=== PATIENT | female | born 1995 | race Caucasian/White ===

== ENCOUNTER 2022-04-23 09:02 | Outpatient (CLI) | payer OTHER, SELFPAY | END 2022-04-23 09:03 | disposition home or self-care (01) | LOC: LKVREF 04-24 14:21 | PROVIDERS: PCP Physician Assistant Medical; Visit Provider Physician Assistant Medical | DX: Z01.419 Encounter for gynecological examination (general) (routine) without abnormal findings (principal); F41.9 Anxiety disorder, unspecified; Z13.6 Encounter for screening for cardiovascular disorders; Z13.29 Encounter for screening for other suspected endocrine disorder | CPT/HCPCS: 80061; 82947; 84443 ==

== ENCOUNTER 2022-09-09 11:52 | Emergency (ER) | payer OTHER, SELFPAY ==
[2022-09-09 11:59] VITALS: BP 116/92; PULSE 81; RESP 16; TEMP 36.7; O2SAT 97; BMI 28.3
--- NOTE | 2022-09-09 12:17 | CRLHL7_ITS ---
For Patients: As a result of the Century Cures Act, medical imaging exams and procedure reports are released immediately into your electronic medical record. You may view this report before your referring provider. If you have questions, please contact your health care provider. INDICATION: Bleeding in 1st trimester. TECHNIQUE: Ultrasound OB pelvis transvaginal. Real-time renee-scale imaging of the pelvis was performed. COMPARISON: None. FINDINGS: There is an intrauterine . Gestational sac has a mean sac diameter of 0.7 cm corresponds to a gestational age of 5 weeks 3 days with a sonographic due date of May 09, 2023. There is a normal appearing yolk sac. There are no gross abnormalities noted within the embryo at this early state of development. The placenta has not yet developed. There is no sign of perigestational hemorrhage. The ovaries are of normal size. There are no suspicious fluid collections noted in the cul-de-sac. IMPRESSION: Early intrauterine with an estimated ultrasound age of 5 weeks 3 days by gestational sac size. It is too early to determine viability. No sign of hemorrhage or other abnormality. Dictated by Gordo Lewis MD @ 09/09/2022 2:34:56 PM (Electronically Signed)
--- NOTE | 2022-09-09 12:23 | ED.GENADULT ---
HPI - General Adult General Time Seen by Provider: 12:24 Date Seen: 09/09/22 Chief complaint: Vaginal Bleeding Stated complaint: Possible miscarriage Time Seen by Provider: 09/09/22 12:02 Source: patient Mode of arrival: ambulatory Limitations: no limitations History of Present Illness HPI narrative: Patient is a 27 year white female who has a G 3 para 2, who presents at about 7 weeks estimated gestational age by last menstrual period with vaginal bleeding for 2 days it was very light could date was little heavier. She [facility] nursing [facility] and asked her to come to the ER. She has no lightheadedness dizziness, she does not have any chest pain breathing problem, no fevers chills or COVID symptoms. Presents to the ED, she has passed some clots Related Data Home Medications Medication Instructions Recorded Confirmed ibuprofen 600 mg tablet mg PO PRN 04/22/22 04/22/22 loratadine 10 mg tablet 10 mg PO DAILY 04/22/22 04/22/22 Previous Rx's Medication Instructions Recorded fluoxetine 20 mg capsule 20 mg PO QDAY #90 caps 07/29/22 Allergies Allergy/AdvReac Type Severity Reaction Status Date / Time No Known Allergies Allergy Unknown Unverified 04/22/22 10:06 Review of Systems Status of ROS: Reports: 6 or more systems reviewed and unremarkable except as noted in History and below [facility] Medical History Normal spontaneous vaginal delivery Family History Son Kidney disease Mother Anxiety and depression Other Thyroid disease Social History Narrative: . 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 Nonsmoker 5 alcoholic beverages per month on average Smoking Status: Never smoker How often do you have a drink containing alcohol: never AUDIT-C Alcohol total score: 0 Non-prescribed substance use: denies use Little interest or pleasure in doing things: several days Feeling down, depressed, or hopeless: several days Exam Narrative: Exam Narrative: Objective: The patient is alert or x3 vital signs unremarkable, abdomen is benign, negative CVA tenderness, extremities show good perfusion Const: Vital Signs, click to edit/add: Vital Signs - 24 hr 09/09/22 11:59 Temperature 98.1 F Pulse Rate [Pulse Oximeter] 81 Respiratory Rate 16 Blood Pressure [Le ft Upper Arm] 116/92 H Pulse Oximetry 97 Oxygen Delivery Me thod Room Air Course Vital Signs Vital signs: Initial Vital Signs Temperature 98.1 F 09/09/22 11:59 Temperature Source Temporal Artery Scan 09/09/22 11:59 Pulse Rate 81 09/09/22 11:59 Respiratory Rate 16 09/09/22 11:59 Blood Pressure 116/92 H 09/09/22 11:59 Blood Pressure Mean 100 09/09/22 11:59 Blood Pressure Position Supine 09/09/22 11:59 Pulse Oximetry 97 09/09/22 11:59 Oxygen Delivery Method 09/09/22 11:59 Vital Signs Temperature 98.1 F 09/09/22 11:59 Pulse Rate 81 09/09/22 11:59 Respiratory Rate 16 09/09/22 11:59 Blood Pressure 116/92 H 09/09/22 11:59 Pulse Oximetry 97 09/09/22 11:59 Oxygen Delivery Method 09/09/22 11:59 Temperature 98.1 F 09/09/22 11:59 Pulse Rate 81 09/09/22 11:59 Respiratory Rate 16 09/09/22 11:59 Blood Pressure 116/92 H 09/09/22 11:59 Pulse Oximetry 97 09/09/22 11:59 Oxygen Delivery Method 09/09/22 11:59 Medical Decision Making MDM Narrative Medical decision making narrative: At this point I think could be appropriate to do an ultrasound transvaginal to the confirm , or see if there was intrauterine contents. Would also do a qualitative HCG, blood type, CBC heme 4, panel 7. Disposition pending findings above. At this point the patient is hemodynamically stable. Lab Data Labs: Lab Results 09/09/22 09/09/22 09/09/22 Range/Units 12:40 12:40 12:40 WBC 9.57 (4.50-11.00) K/uL RBC 4.24 (4.00-5.20) m/uL Hgb 13.2 (12.0-16.0) gm/dL Hct 40.1 (33.0-51.0) % MCV 95 (80-100) fL MCH 31 (26-34) pg MCHC 33 (32-36) gm/dL RDW Coeff of Jyoti 13.3 (11.5-15.5) % Plt Count 320 (140-440) K/uL Neut % (Auto) 59.0 (42.0-72.0) % Lymph % (Auto) 29.5 (20-44) % [place] % (Auto) 6.2 (0.0-11.0) % Eos % (Auto) 4.6 (0.0-7.0) % Baso % (Auto) 0.5 (0.0-3.0) % Neut # (Auto) 5.65 (1.7-7.0) K/uL Lymph # (Auto) 2.82 (0.90-2.90) K/uL [place] # (Auto) 0.60 (0.00-0.90) K/UL Eos # (Auto) 0.44 (0.00-0.50) K/uL Baso # (Auto) 0.05 (0.00-0.30) K/uL Sodium 140 (135-149) mmol/L Potassium 4.5 (3.6-5.1) mmol/L Chloride 105 (96-114) mmol/L Carbon Dioxide 28 (20-32) mmol/L BUN 16 (5-24) mg/dL Creatinine 0.7 (0.5-1.5) mg/dL Estimated Creat Clear 87.48 Estimated GFR 122 ml/min Glucose 91 (60-115) mg/dL Calcium 10.0 (8.4-10.6) mg/dL HCG, Quant mIU/mL Blood Type O Positive 09/09/22 Range/Units 12:40 WBC (4.50-11.00) K/uL RBC (4.00-5.20) m/uL Hgb (12.0-16.0) gm/dL Hct (33.0-51.0) % MCV (80-100) fL MCH (26-34) pg MCHC (32-36) gm/dL RDW Coeff of Jyoti (11.5-15.5) % Plt Count (140-440) K/uL Neut % (Auto) (42.0-72.0) % Lymph % (Auto) (20-44) % [place] % (Auto) (0.0-11.0) % Eos % (Auto) (0.0-7.0) % Baso % (Auto) (0.0-3.0) % Neut # (Auto) (1.7-7.0) K/uL Lymph # (Auto) (0.90-2.90) K/uL [place] # (Auto) (0.00-0.90) K/UL Eos # (Auto) (0.00-0.50) K/uL Baso # (Auto) (0.00-0.30) K/uL Sodium (135-149) mmol/L Potassium (3.6-5.1) mmol/L Chloride (96-114) mmol/L Carbon Dioxide (20-32) mmol/L BUN (5-24) mg/dL Creatinine (0.5-1.5) mg/dL Estimated Creat Clear Estimated GFR ml/min Glucose (60-115) mg/dL Calcium (8.4-10.6) mg/dL HCG, Quant 2051.10 mIU/mL Blood Type Discharge Plan Discharge Clinical Impression: Threatened Patient Disposition: Home, Self-Care Condition: Stable Additional Instructions: Patient has hCG of 2000, has intrauterine gestational sac. Basically needs a repeat hCG level in 48 hours. Her blood type is positive Rh. She will return if problems concerns, lightheadedness dizziness, otherwise follow up with OB. Discharge Diet: Regular Prescriptions: No Action loratadine 10 mg tablet 10 mg PO DAILY ibuprofen 600 mg tablet PO PRN fluoxetine 20 mg capsule 20 mg PO QDAY Qty: 90 0RF Rx Instructions: once daily for mood Follow Up/Referrals: Angela Owens PA-C [Primary Care Provider] - Stand Alone Forms: [employer] Info Instructions
[2022-09-09 12:51] LABS: Basophils Absolute Auto 0.05 K/uL (0.00-0.30); Basophils Percent Auto 0.5 % (0.0-3.0); Eosinophils Absolute Auto 0.44 K/uL (0.00-0.50); Eosinophils Percent Auto 4.6 % (0.0-7.0); Hematocrit 40.1 % (33.0-51.0); Hemoglobin* 13.2 gm/dL (12.0-16.0); Immature Granulocytes Abs Auto 0.02 K/uL (0.00-0.30); Immature Granulocytes Pct Auto 0.2 %; Lymphocytes Absolute Auto 2.82 K/uL (0.90-2.90); Lymphocytes Percent Auto 29.5 % (20-44); Mean Corpuscular HGB Conc 33 gm/dL (32-36); Mean Corpuscular Hemoglobin 31 pg (26-34); Mean Corpuscular Volume 95 fL (80-100); Monocytes Percent Auto 6.2 % (0.0-11.0); Neutrophils Absolute Auto 5.65 K/uL (1.7-7.0); Platelet Count* 320 K/uL (140-440); RDW Coefficient of Variation % 13.3 % (11.5-15.5); Red Blood Count 4.24 m/uL (4.00-5.20); White Blood Count* 9.57 K/uL (4.50-11.00)
[2022-09-09 12:53] LABS: Slide Review Reflex No
[2022-09-09 13:15] LABS: Chloride* 105 mmol/L (96-114); Potassium* 4.5 mmol/L (3.6-5.1); Sodium* 140 mmol/L (135-149)
[2022-09-09 13:18] LABS: Blood Urea Nitrogen* 16 mg/dL (5-24); Carbon Dioxide* 28 mmol/L (20-32); Creatinine* 0.7 mg/dL (0.5-1.5); Est. Creatinine Clearance* 87.48; Estimated Glomerular Filt Rate 122 ml/min; Glucose* 91 mg/dL (60-115)
== END 2022-09-09 14:06 | disposition home or self-care (01) ==
PROVIDERS: Emergency Provider Family Medicine; PCP Physician Assistant Medical
DX: O20.0 Threatened abortion (principal); Z3A.01 Less than 8 weeks gestation of pregnancy
CPT/HCPCS: 36415; 76817; 80048; 84702; 85025; 86900; 86901; 99284

== ENCOUNTER 2023-05-29 19:23 | Emergency (ER) | payer OTHER, SELFPAY ==
[2023-05-29] VITALS (14 sets, daily range): BP systolic 96–124; BP diastolic 55–85; PULSE 87–117; RESP 20; TEMP 37.8; O2SAT 90–99; BMI 29.3
[2023-05-29 20:38] LABS: Basophils Percent Auto 0.2 % (0.0-3.0); Eosinophils Percent Auto 0.7 % (0.0-7.0); Hematocrit 37.4 % (33.0-51.0); Hemoglobin* 12.8 gm/dL (12.0-16.0); Immature Granulocytes Pct Auto 0.3 %; Lactate* 1.6 mmol/L (0.5-1.9); Lymphocytes Percent Auto 8.1 % (20-44); Mean Corpuscular HGB Conc 34 gm/dL (32-36); Mean Corpuscular Hemoglobin 31 pg (26-34); Mean Corpuscular Volume 91 fL (80-100); Monocytes Percent Auto 3.5 % (0.0-11.0); Neutrophils Percent Auto 87.2 % (42.0-72.0); Platelet Count* 325 K/uL (140-440); RDW Coefficient of Variation % 13.4 % (11.5-15.5); White Blood Count* 14.37 K/uL (4.50-11.00)
[2023-05-29 20:40] LABS: Slide Review Reflex No
[2023-05-29 20:49] LABS: Mono Screen* Negative (Negative)
[2023-05-29] MEDS: diphenhydrAMINE 50 MG/ML inj 25 MG IVP (20:49)
[2023-05-29] MEDS: ONDANSETRON 2 MG/ML inj 4 MG IVP (20:49)
[2023-05-29] MEDS: 0.9 % SODIUM CHLORIDE 1000 ml 1,000 ML IV (20:49)
[2023-05-29 20:54] LABS: Albumin* 4.5 g/dL (3.3-5.0); Chloride* 101 mmol/L (96-114); Sodium* 133 mmol/L (135-149)
[2023-05-29 20:55] LABS: Potassium* 3.4 mmol/L (3.6-5.1)
[2023-05-29 20:57] LABS: Creatinine* 0.4 mg/dL (0.5-1.5); Est. Creatinine Clearance* 159.42; Estimated Glomerular Filt Rate 139 ml/min
[2023-05-29 20:58] LABS: Alanine Aminotransferase* 14 U/L (4-35); Alkaline Phosphatase* 61 U/L (40-150); Anion Gap 11 mEq/L (7-15); Aspartate Amino Transferase* 21 U/L (12-35); Bilirubin Direct* 0.1 mg/dL (0.0-0.5); Bilirubin Total* 0.4 mg/dL (0.1-1.5); Blood Urea Nitrogen* 6 mg/dL (5-24); Calcium* 9.7 mg/dL (8.4-10.6); Carbon Dioxide* 21 mmol/L (20-32); Glucose* 104 mg/dL (60-115); Total Protein* 7.9 g/dL (6.0-8.3)
[2023-05-29 21:00] LABS: C Reactive Protein* 0.9 mg/dL (0.5-1.0)
[2023-05-29 21:36] LABS: Strep A DNA Probe* NOT DETECTED (Not Detectd)
[2023-05-29 21:42] LABS: PCR FLU A Negative PCR FLU A (Negative); PCR FLU B Negative PCR FLU B (Negative); PCR RSV Negative PCR RSV (Negative)
[2023-05-29 22:00] LABS: SARS PCR* Negative SARS-CoV-2 (Negative)
--- NOTE | 2023-05-29 22:13 | ED.NURSE ---
heart tones done via Doppler, 175-179 BPM
[2023-05-29] MEDS: 5 % DEXTROSE/0.9% SOD CHLORIDE 1,000 ML 1000 ML IV (22:33)
--- NOTE | 2023-05-29 23:24 | ED.GENADULT ---
HPI - General Adult General Chief complaint: Nausea/Vomiting Stated complaint: 13 weeks --migraine, vomiting Time Seen by Provider: 05/29/23 20:04 Source: patient Mode of arrival: ambulatory Limitations: no limitations History of Present Illness HPI narrative: 28-year-old female at 13 weeks gestation presenting today complaining of not feeling well. See she has been vomiting and feeling nauseated all day long. States that she has a terrible headache. States that she does have a history of headaches but feels like today's worse than usual. She denies any blurry vision or changes in her hearing. She denies any focal neurologic deficits. She denies dizziness, lightheadedness or vertiginous symptoms. She denies difficulty breathing or swallowing. She states that she had an episode of chills earlier x1. She denies any dysuria, increased frequency or urgency. No vaginal discharge. No diarrhea. She denies any chest or abdominal pain. She has not been coughing. She denies a sore throat. so far has been uncomplicated. Related Data Home Medications Medication Instructions Recorded Confirmed ondansetron HCl 4 mg tablet 4 mg PO Q6H PRN 05/29/23 05/29/23 Previous Rx's Medication Instructions Recorded sertraline 50 mg tablet 50 mg PO QDAY #90 tabs 01/11/23 Allergies Allergy/AdvReac Type Severity Reaction Status Date / Time No Known Allergies Allergy Unknown Verified 05/29/23 19:54 Review of Systems Status of ROS: Reports: 10 or more systems reviewed and unremarkable except as noted in History and below [facility] Medical History Hx of one miscarriage (~09/2022) ?Z87.59 - Personal history of other complications of , childbirth and the puerperium (ICD-10) Family History Son Kidney disease Mother Anxiety and depression Other Thyroid disease Social History Narrative: . Two children ( daughter and son) Pursuing graphic design Nonsmoker 5 alcoholic beverages per month on average Smoking Status: Never smoker How often do you have a drink containing alcohol: never AUDIT-C Alcohol total score: 0 Non-prescribed substance use: denies use Little interest or pleasure in doing things: several days Feeling down, depressed, or hopeless: more than half the days Exam Narrative: Exam Narrative: Well-nourished well-developed patient in no acute distress. Alert and oriented. Answers questions appropriately. Mood and affect are appropriate. Thoughts are goal oriented and rational. No tangential or magical thinking noted. Patient speaks in full sentences without needing to catch her breath. She does not appear ill or toxic. HEENT: Normocephalic atraumatic. Pupils are equally round reactive to light. Extraocular muscles are intact. Conjunctivae are moist without any icterus noted. Moist mucous membranes. Posterior pharynx is normal. Neck is soft without any lymphadenopathy or thyromegaly. No masses are appreciated. Cardiovascular: Heart is regular rate and rhythm S1 and S2 are present without any murmurs. Lungs: Clear to auscultation bilaterally no wheezes rhonchi or rales are appreciated. Patient takes deep breaths without any discomfort. Abdomen: Soft and nontender nondistended with normal bowel sounds. No guarding or rebound. Extremities: Bilateral lower extremities are without edema. Normal DP and PT pulses. Skin: Well perfused without any obvious rashes. Strength is 5/5 of the upper and lower extremities. Reflexes are 2+ and symmetric at the knees. Cranial nerves 3-12 are normal. There is no nystagmus either horizontally or vertically. Gait is normal. She has no meningeal signs. Const: Vital Signs, click to edit/add: Vital Signs - 24 hr 05/29/23 19:55 05/29/23 20:05 05/29/23 20:30 Temperature 100.0 F H Pulse Rate Pulse Rate [Pulse Oximeter] 117 H Respiratory Rate 20 Blood Pressure Blood Pressure [Ri ght Upper Arm] 117/80 121/82 119/85 Pulse Oximetry 97 Oxygen Delivery Me thod Room Air 05/29/23 21:00 05/29/23 21:30 05/29/23 22:00 Temperature Pulse Rate Pulse Rate [Pulse Oximeter] 87 87 96 Respiratory Rate Blood Pressure Blood Pressure [Ri ght Upper Arm] 124/76 123/80 114/68 Pulse Oximetry 97 98 98 Oxygen Delivery Me thod Room Air Room Air Room Air 05/29/23 22:09 05/29/23 22:15 05/29/23 22:30 Temperature Pulse Rate 97 95 103 H Pulse Rate [Pulse Oximeter] Respiratory Rate Blood Pressure Blood Pressure [Ri ght Upper Arm] Pulse Oximetry 90 99 96 Oxygen Delivery Me thod 05/29/23 22:31 05/29/23 22:45 05/29/23 23:00 Temperature Pulse Rate 100 108 H 109 H Pulse Rate [Pulse Oximeter] Respiratory Rate Blood Pressure 96/58 L Blood Pressure [Ri ght Upper Arm] Pulse Oximetry 97 96 96 Oxygen Delivery Me thod 05/29/23 23:01 05/29/23 23:15 Temperature Pulse Rate 111 H 108 H Pulse Rate [Pulse Oximeter] Respiratory Rate Blood Pressure 100/55 L Blood Pressure [Ri ght Upper Arm] Pulse Oximetry 97 95 Oxygen Delivery Me thod Course Course ED Course: IV is established and patient received L of normal saline. She also received Zofran and Benadryl. She had no episodes of vomiting while she was here. Lab work showed a slightly elevated white cell count however, normal CRP and lactate. Remainder of lab work was unremarkable including a triple swab, mono and strep throat. Her headache did continue therefore I did consult with Dr. Montero who recommended codeine for her headache and another L of D5 normal saline-both of which were given. Her headache did improve a little bit to the point where she felt comfortable going home. At this point she was also able to give a urine sample which did not show any evidence of infection but did have ketones. Vital Signs Vital signs: Initial Vital Signs Temperature 100.0 F H 05/29/23 19:55 Temperature Source Temporal Artery Scan 05/29/23 19:55 Pulse Rate 117 H 05/29/23 19:55 Pulse Rhythm Regular 05/29/23 19:55 Respiratory Rate 05/29/23 19:55 Blood Pressure 117/80 05/29/23 19:55 Blood Pressure Mean 92 05/29/23 19:55 Blood Pressure Position Sitting 05/29/23 19:55 Pulse Oximetry 97 05/29/23 19:55 Oxygen Delivery Method Room Air 05/29/23 19:55 Vital Signs Temperature 100.0 F H 05/29/23 19:55 Pulse Rate 117 H 05/29/23 19:55 Respiratory Rate 20 05/29/23 19:55 Blood Pressure 117/80 05/29/23 19:55 Pulse Oximetry 97 05/29/23 19:55 Oxygen Delivery Method Room Air 05/29/23 19:55 Temperature 100.0 F H 05/29/23 19:55 Pulse Rate 108 H 05/29/23 23:15 Respiratory Rate 20 05/29/23 19:55 Blood Pressure 100/55 L 05/29/23 23:01 Pulse Oximetry 95 05/29/23 23:15 Oxygen Delivery Method Room Air 05/29/23 22:00 Medical Decision Making MDM Narrative Medical decision making narrative: 28-year-old female at 13 weeks gestation with vomiting, fever and headache. Discussed the possibility of infectious cause to her symptoms. At this point however, given normal CRP and lactate and no meningeal signs, I do think it is safe for her to be discharged home. We will send her with Zofran and Tylenol with codeine for the next couple of days. Recommend she follow up with her OBGYN on Wednesday. Certainly return to the ER if her symptoms are getting worse instead of better. Patient was in agreement with this plan in had no other questions. Lab Data Lab results reviewed: Yes I reviewed the patient's lab results Labs: Lab Results 05/29/23 05/29/23 05/29/23 Range/Units 20:30 20:55 23:30 WBC 14.37 H (4.50-11.00) K/uL RBC 4.10 (4.00-5.20) m/uL Hgb 12.8 (12.0-16.0) gm/dL Hct 37.4 (33.0-51.0) % MCV 91 (80-100) fL MCH 31 (26-34) pg MCHC 34 (32-36) gm/dL RDW Coeff of Jyoti 13.4 (11.5-15.5) % Plt Count 325 (140-440) K/uL Neut % (Auto) 87.2 H (42.0-72.0) % Lymph % (Auto) 8.1 L (20-44) % [place] % (Auto) 3.5 (0.0-11.0) % Eos % (Auto) 0.7 (0.0-7.0) % Baso % (Auto) 0.2 (0.0-3.0) % Neut # (Auto) 12.50 H (1.7-7.0) K/uL Lymph # (Auto) 1.20 (0.90-2.90) K/uL [place] # (Auto) 0.50 (0.00-0.90) K/UL Eos # (Auto) 0.10 (0.00-0.50) K/uL Baso # (Auto) 0.00 (0.00-0.30) K/uL Abs Immat Gran (auto) 0.00 (0.00-0.30) K/uL Imm/Tot Granulo (auto) 0.3 % Sodium 133 L (135-149) mmol/L Potassium 3.4 L (3.6-5.1) mmol/L Chloride 101 (96-114) mmol/L Carbon Dioxide 21 (20-32) mmol/L Anion Gap 11 (7-15) mEq/L BUN 6 (5-24) mg/dL Creatinine 0.4 L (0.5-1.5) mg/dL Estimated Creat Clear 159.42 Estimated GFR 139 ml/min Glucose 104 (60-115) mg/dL Lactate 1.6 (0.5-1.9) mmol/L Calcium 9.7 (8.4-10.6) mg/dL Total Bilirubin 0.4 (0.1-1.5) mg/dL Direct Bilirubin 0.1 (0.0-0.5) mg/dL AST 21 (12-35) U/L ALT 14 (4-35) U/L Alkaline Phosphatase 61 (40-150) U/L C-Reactive Protein 0.9 (0.5-1.0) mg/dL Total Protein 7.9 (6.0-8.3) g/dL Albumin 4.5 (3.3-5.0) g/dL Urine Color Yellow (Yellow) Urine Appearance Clear (Clear) Urine pH 6.0 (5.0-8.5) Ur Specific [place] <= 1.005 (1.000-1.030) Urine Protein Negative (Negative) Urine Glucose (UA) 2+ A (Negative) Urine Ketones 3+ A (Negative) Urine Blood Negative (Negative) Urine Nitrite Negative (Negative) Urine Bilirubin Negative (Negative) Urine Urobilinogen 0.2 (0.2-1.0) Ur Leukocyte Esterase Negative (Negative) Urine RBC 0-2 (0-2) Urine WBC 0-2 (0-5) Ur Squamous Epith Cells None (None-Few) Urine Bacteria None (None) SARS-CoV-2 (PCR) Negative SARS-CoV-2 (Negative) Monoscreen Negative (Negative) Influenza Type A (PCR) Negative PCR FLU A (Negative) Influenza Type B (PCR) Negative PCR FLU B (Negative) RSV (PCR) Negative PCR RSV (Negative) Group A Strep DNA NOT DETECTED (Not Detectd) Discharge Plan Discharge Clinical Impression: Headache, Vomiting affecting Patient Disposition: Home, Self-Care Condition: Stable Additional Instructions: You will be sent home with nausea medication as well as pain medication. Take as needed/as directed. I do recommend you follow-up with your OBGYN on Wednesday. Return to the emergency department if you feel like your symptoms are getting worse instead of better. Medications sent to [facility]. Prescriptions: No Action ondansetron HCl 4 mg tablet 4 mg PO Q6H PRN sertraline 50 mg tablet 50 mg PO QDAY Qty: 90 1RF Follow Up/Referrals: Angela Owens PA-C [Primary Care Provider] - Stand Alone Forms: [employer] Info Instructions
[2023-05-29 23:42] LABS: Appearance Urine Clear (Clear); Bilirubin Urine Negative (Negative); Blood Urine Negative (Negative); Color Urine Yellow (Yellow); Glucose Urine 2+ (Negative); Ketones Urine 3+ (Negative); Leukocyte Esterase Urine Negative (Negative); Nitrite Urine Negative (Negative); Protein Urine Negative (Negative); Specific Gravity Urine <= 1.005 (1.000-1.030); Urobilinogen Urine 0.2 (0.2-1.0)
[2023-05-29 23:55] LABS: RBC Urine 0-2 (0-2); WBC Urine 0-2 (0-5)
== END 2023-05-30 00:30 | disposition home or self-care (01) ==
PROVIDERS: Emergency Provider Family Medicine; PCP Physician Assistant Medical
DX: O21.9 Vomiting of pregnancy, unspecified (principal); R51.9 Headache, unspecified; Z3A.13 13 weeks gestation of pregnancy
CPT/HCPCS: 36415; 80048; 80076; 81001; 83605; 85025; 86140; 86308; 87086; 87631; 87651; 96361; 96374; 96375; 99284; A9270; J1200; J2405; J7030; J7042